=== PATIENT | female | born 1990 | race Caucasian/White ===

== ENCOUNTER 2016-11-07 09:19 | Inpatient (IN) ==
[2016-11-07] MEDS ORDERED: ONDANSETRON 4 MG/2 ML VIAL IV PRN ×2 (09:50→12:47)
[2016-11-07] MEDS ORDERED: diphenhydrAMINE 50 MG/1 ML VIAL IV PRN ×2 (09:53)
[2016-11-07] MEDS ORDERED: hydrOXYzine HCL 25 MG/1 ML VIAL IM PRN (09:53)
[2016-11-07] MEDS ORDERED: ePHEDrine 50 MG/ML AMP IV PRN (09:53)
[2016-11-07] MEDS ORDERED: PROMETHAZINE 25 MG/1 ML VIAL IM ONE (09:53)
[2016-11-07] MEDS ORDERED: LACTATED RINGERS 1,000 ML IV ONE (09:55)
[2016-11-07] MEDS ORDERED: CITRIC ACID/SODIUM CITRATE 30 ML UDCUP PO ONE (09:55)
[2016-11-07] MEDS ORDERED: FAMOTIDINE 20 MG/2 ML VIAL IV ONE (09:55)
[2016-11-07] MEDS ORDERED: LACTATED RINGERS 1,000 ML IV SCH ×2 (10:00)
[2016-11-07] MEDS ORDERED: ceFAZolin 2,000 MG in PREMIX 1 EACH IV ONE (10:02)
[2016-11-07] MEDS ORDERED: OXYTOCIN/LR 20 UNIT/1,000 ML BAG IV ONE ×2 (10:02→12:47)
[2016-11-07 10:21] LABS: Hemoglobin 11.7 GM/DL (12.0-16.0); Red Blood Count 3.97 MC/CUMM (3.8-5.5); White Blood Count 13.2 T/CUMM (4-12)
[2016-11-07 10:22] LABS: Basophils # 0.1 10*3/uL (0.0-0.2); Basophils % 0.5 % (0.0-0.8); Eosinophils % 0.2 % (0.00-10.9); Hematocrit 33.8 VOL% (35.7-47.0); Immature Granulocytes % 0.7 %; Immature Granulocytes Absolute 0.09 #; Lymphocytes # 1.6 10*3/uL (1.4-4.0); Lymphocytes % 11.7 % (21.3-54.2); Mean Corpuscular HGB Conc 34.6 GM/DL (32-36); Mean Corpuscular Hemoglobin 30 PG (27-34); Mean Corpuscular Volume 85.1 FL (87-102); Mean Platelet Volume 10.4 FL (9.6-12.0); Monocytes # 0.9 10*3/uL (0.11-0.8); Monocytes % 6.4 % (1.7-12.7); Neutrophils # 10.6 10*3/uL (1.4-7.4); Neutrophils % 80.5 % (38.7-73.9); Platelet Count 259 T/CUMM (130-400); Red Cell Distribution Width 13.8 % (9.3-17.3)
[2016-11-07 12:39] LABS: Apearance,Urine CLEAR (Clear); Bilirubin,Urine Negative (Negative); Blood, Urine Negative (Negative); Glucose,Urine (UA) Negative (Negative); Ketones,Urine 20 mg/dL (Negative); Nitrite,Urine Negative (Negative); Protein,Urine Negative; RBC,Urine <1 /HPF (0-4); Urine Color Straw (Yellow); Urine Specific Gravity 1.006 (1.001-1.035); Urine Urobilinogen < 2.0 EU/DL (0.2-1.0)
--- NOTE | 2016-11-07 12:46 | OB/GYN History & Physical ---
History of Present Illness Chief complaint: 39 weeks breech History of present illness: Ms. Jewell is a 26 year old female 2 para 1 at 39 weeks estimated gestational age breech presentation admitted for elective Home Medications Medication Instructions Recorded Confirmed Type Vits #90/Iron Fum/FA 1 tablet PO DAILY 10/31/16 11/07/16 History [ Formula Tablet] Allergies Allergy/AdvReac Type Severity Reaction Status Date / Time No Known Allergies Allergy Verified 10/31/16 12:53 12 point system: reviewed and no additional remarkable complaints except as stated Medical,Surgical,& Family Hx - Medical History Reproductive: No history of: Ectopic - Surgical History Reproductive Surgeries: Patient denies;: Section - Family History Family History: Reports;: Family Cancer (MATERNAL GR MOM BREAST,OVARIAN), Family Heart Disease (DAD ET PATERNAL GR DAD) Denies;: Family Anesthesia Reaction, Family Diabetes, Family Hematology, Family Hypertension, Family Psychiatric Problems, Family Stroke, Additional Family History - Social History Smoking Status: Never smoker 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 - Constitutional Vitals: Vital Signs Temp Pulse Resp BP Pulse Ox 11/07/16 09:46 98.4 F 70 20 129/72 98 General appearance: normal weight, no acute distress - Head Head exam: Present: normal inspection, normocephalic, atraumatic - Neck Neck exam: Present: normal inspection - Respiratory Respiratory exam: Present: clear to auscultation bilaterally - Breast Breasts: as per HPI Menstruation: as per HPI - Cardiovascular Cardiovascular exam: Present: regular rate and rhythm - GI/Abdominal GI/Abdominal exam: Present: normal bowel sounds - Extremities Exam Extremities exam: Present: normal inspection, normal capillary refill - Back Exam Back exam: Present: normal inspection - Neurological Exam Neurological exam: Present: alert, oriented X3 - Psychiatric Psychiatric exam: Present: normal affect, normal mood - Skin Skin exam: Present: normal color, warm Assessment and Plan (1) with 39 completed weeks gestation Status: Acute Current Visit: Yes (2) Sulaiman breech presentation Status: Acute Current Visit: Yes Results - Labs CBC & BMP: 11/07/16 10:00
[2016-11-07] MEDS ORDERED: MEASLES/MUMPS/RUBELLA VACCINE 0.5 ML VIAL SUBCUT ONE (12:47)
[2016-11-07] MEDS ORDERED: DIPH/TET/ACEL PERT BOOSTER VACCINE 0.5 ML VIAL IM ONE (12:47)
[2016-11-07] MEDS ORDERED: WITCH HAZEL PADS 100/JAR TOP PRN (12:47)
[2016-11-07] MEDS ORDERED: BISACODYL 10 MG SUPP RECTAL PRN (12:47)
[2016-11-07] MEDS ORDERED: BENZOCAINE 20%/MENTHOL 0.5% SPRAY 56 GM CAN TOP PRN (12:47)
[2016-11-07] MEDS ORDERED: ACETAMINOPHEN 325 MG TABLET PO PRN (12:47)
[2016-11-07] MEDS ORDERED: oxyCODONE/ACETAMINOPHEN 5-325 MG TABLET PO PRN (12:47)
[2016-11-07] MEDS ORDERED: HYDROCORTISONE 2.5% RECTAL CREAM 30 GM TUBE TOP PRN (12:47)
[2016-11-07] MEDS ORDERED: RHO(D) IMMUNE GLOBULIN 300 MCG SYRINGE IM ONE (12:47)
[2016-11-07] MEDS ORDERED: LANOLIN 50% CREAM 0.3 OZ TUBE TOP PRN (12:47)
--- NOTE | 2016-11-07 12:47 | Operative Note ---
Date of procedure: 11/07/16 Pre-op diagnosis: 39 weeks sulaiman breech Post-op diagnosis: same Procedure: This is Dr. Connors dictating operative note: Preoperative diagnosis intrauterine intrauterine at [39] weeks Sulaiman breech presentation Postoperative diagnosis same Procedure primary low transverse section Surgeon Dr. Connors Anesthesia spinal Findings liveborn female infant 6 pounds 12 ounces Apgars 9 and 9 Complications none Estimated blood loss 300 mL Disposition patient to recovery room in [stable] condition. Infant to nursery in [stable] condition Operative description: After the risks benefits and alternatives were explained to the patient in detail and informed consent was obtained, the patient was taken to the operating room where she was placed in the supine position. After achieving appropriate anesthesia the abdomen was prepped and draped in the usual sterile fashion. A Ocmbs catheter was placed without difficulty. After the appropriate time out and after adequate anesthesia was ascertained a Pfannenstiel skin incision was made and carried down through the subcutaneous tissue down to the fascia. The fascia was nicked in the midportion and undermined and incised both laterally and cephalad using sharp dissection with the curved Carver scissors. 2 Vilma clamps were used to elevate the rectus fascia superiorly which was bluntly and sharply dissected away from the rectus muscle below. This was repeated inferiorly. The rectus muscles were then bluntly in the midline the peritoneum identified grasped with 2 curved hemostats and entered sharply using the curved Metzenbaum scissors. A bladder blade was then placed in the pelvis and a bladder flap was created off the lower uterine segment using sharp dissection with the Metzenbaum scissors. The bladder blade was then repositioned. A transverse incision was made across the lower uterine segment down to the amnion. Entry into the amnion revealed [ clear] amniotic fluid. The uterine incision was then extended laterally using bilateral finger fractionation. Upon palpation the presenting part was sulaiman breech which was gently elevated out of the pelvis and delivered onto the abdominal wall using appropriate fundal pressure. The 's nose and oropharynx were bulb and DeLee suctioned and the had spontaneous cry delivery. The cord was doubly clamped and cut and the infant was handed over to the team for care. Cord blood was obtained. The placenta was delivered manually and IV Pitocin antibiotics and Zofran were begun. The uterus was then exteriorized and placed in a wet laparotomy sponge. 2 fingers wrapped around a wet laparotomy sponge were used to remove all residual membranes from the uterine cavity. The uterus was then closed in 2 layers. The first layer of myometrium was closed with #1 Monocryl suture in an inner locking fashion beginning at both angles and overlapping slightly in the midline. The second layer of myometrium was closed with #1 Monocryl suture in a running imbricating stitch beginning at the right angle and continuing the length of the uterine incision. Hemostasis was noted to be excellent. The posterior cul-de-sac was then irrigated and cleansed with a wet laparotomy sponge and the uterus was placed back in the abdominal cavity. Both pericolic gutters were then irrigated and cleansed with a wet lap sponge. The uterine incision was then re-irrigated and again noted to be hemostatic. All counts were noted to be correct. The subcutaneous tissue was then closed using 3-0 Vicryl suture in a running fashion. The subfascial area was made hemostatic using electrocautery and closed with #1 PDS suture in a running fashion beginning at both angles and overlapping slightly in the midline. The subcutaneous tissue was irrigated and made hemostatic using electrocautery and closed with 2-0 Vicryl suture in a running fashion and the skin was closed with wide skin angelique and a sterile pressure bandage was applied to the wound. All sponge needle and instrument counts were correct -3 at the end of the procedure. The patient's urine was [clear] both at the beginning in the end of the procedure. The patient was taken to the recovery room in stable condition Anesthesia: spinal Surgeon / Physician: Gabriel Connors Estimated blood loss: other (300) Specimens: none sent Condition: stable Disposition: floor Results - Labs CBC & BMP: 11/07/16 10:00 Discharge Plan - Discharge Medications No Action Vits #90/Iron Fum/FA [ Formula Tablet] 1 tablet PO DAILY - Follow Up or Referral - Forms/Instructions
--- NOTE | 2016-11-07 12:52 | Discharge Summary ---
Hospital Course - Hospital Course Hospital Course: Postoperative the patient did well. She had quick return of bowel bladder function. She remained afebrile and normotensive throughout her hospitalization. Scans were discharged on postoperative day #2 on a regular diet Diagnosis - Discharge Diagnosis (1) with 39 completed weeks gestation Status: Acute (2) Sulaiman breech presentation Status: Acute Discharge Plan - Discharge Data Disposition: Disch To Home/Self Care Condition at Discharge: Stable Discharge Diet: regular diet Activity: increase activity as tolerated, no lifting, other (Pelvic rest) Hygiene: may shower Weight Bearing at Discharge: full weight bearing Driving: not until seen by doctor Contact your physician if you experience:: fever over 101, Difficulty voiding, Redness or swelling, Nausea/Vomiting, Shortness of breath, Bleeding, pain uncontrolled by pain medications - Discharge Medications New oxyCODONE/ACETAMINOPHEN 5-325 [Percocet 5-325] 1 tablet PO Q6H PRN #20 tablet PRN Reason: Pain Severe (8-10) Continue Vits #90/Iron Fum/FA [ Formula Tablet] 1 tablet PO DAILY - Follow Up or Referral Follow Up: Gabriel Connors MD [Physician] - 1 Week - Forms/Instructions Exam - Constitutional Vitals: Period Temp Pulse Resp BP Sys/Calderón Pulse Ox Last 24 Hr 98.4 F 70 20 129/72 98 Discharge Results Procedures and tests throughout hospitalization: Pending Orders 11/08/16 04:00 Comp Blood Count Auto Diff IN AM Labs on day of discharge: Labs from last 24 hours 11/07/16 11/07/16 11/07/16 12:00 10:00 10:00 WBC 13.2 H RBC 3.97 Hgb 11.7 L Hct 33.8 L MCV 85.1 L MCH 30 MCHC 34.6 RDW 13.8 Plt Count 259 MPV 10.4 Neut % (Auto) 80.5 H Lymph % (Auto) 11.7 L [place] % (Auto) 6.4 Eos % (Auto) 0.2 Baso % (Auto) 0.5 Neut # (Auto) 10.6 H Lymph # (Auto) 1.6 [place] # (Auto) 0.9 H Eos # (Auto) 0.0 Baso # (Auto) 0.1 Immature Gran % 0.7 Nucleated RBC % 0.0 Immature Gran # 0.09 Nucleated RBCs # 0.00 Urine Color Straw Urine Appearance Clear Urine pH 8.0 Ur Specific [place] 1.006 Urine Protein Negative Urine Glucose (UA) Negative Urine Ketones 20 Urine Blood Negative Urine Nitrate Negative Urine Bilirubin Negative Urine Urobilinogen < 2.0 H Urine Leukocytes Negative Urine RBC <1 Ur Culture Indicated? Not indicated Blood Type O POSITIVE Antibody Screen Negative DS: Provider Date of admission: 11/07/16 09:19 Primary care physician: Johan Baker Attending physician on admission: Yolanda hZao Consults: 11/07/16 09:50 Consult to Anesthesiology [CONS] Routine Consulting Provider: Reason for Anesthesiology: Epidural Consult Comment: Epidural for pain managment 11/07/16 12:48 Consult to Basting Machine Operator [CONS] Routine Consult Basting Machine Operator: Breast Feeding Discharging clinician: Yolanda Zhao Expected date of discharge: 11/09/16
[2016-11-07] MEDS ORDERED: fentaNYL 100 MCG/2 ML VIAL ONE (13:00)
[2016-11-07] MEDS ORDERED: MORPHINE 10 MG/10 ML VIAL ONE (13:01)
--- NOTE | 2016-11-07 15:12 | Anesthesia Post-Op ---
Anesthesia Post OP - Post Ansesthetic Evaluation Patient seen in post op: Yes Resp: within normal limits CV: within normal limits Mental: within normal limits Temp: within normal limits [id number]: within normal limits Nausea and Vomiting: within normal limits Pain: within normal limits
[2016-11-07] MEDS: oxyCODONE/ACETAMINOPHEN 5-325 MG TABLET PO PRN (16:09)
[2016-11-07] MEDS ORDERED: ceFAZolin 1,000 MG VIAL IM SCH (21:00)
[2016-11-07] MEDS: DOCUSATE SODIUM 100 MG CAPSULE PO SCH (23:19)
[2016-11-08 05:30] LABS: Basophils # 0.1 10*3/uL (0.0-0.2); Basophils % 0.5 % (0.0-0.8); Eosinophils # 0.1 10*3/uL (0.0-0.87); Eosinophils % 0.7 % (0.00-10.9); Hematocrit 26.6 VOL% (35.7-47.0); Hemoglobin 8.9 GM/DL (12.0-16.0); Immature Granulocytes % 0.6 %; Immature Granulocytes Absolute 0.07 #; Lymphocytes # 1.7 10*3/uL (1.4-4.0); Mean Corpuscular HGB Conc 33.5 GM/DL (32-36); Mean Corpuscular Hemoglobin 29 PG (27-34); Mean Corpuscular Volume 86.6 FL (87-102); Monocytes # 0.9 10*3/uL (0.11-0.8); Monocytes % 7.8 % (1.7-12.7); Neutrophils # 8.4 10*3/uL (1.4-7.4); Neutrophils % 75.4 % (38.7-73.9); Platelet Count 182 T/CUMM (130-400); Red Blood Count 3.07 MC/CUMM (3.8-5.5); Red Cell Distribution Width 13.9 % (9.3-17.3); White Blood Count 11.1 T/CUMM (4-12)
[2016-11-08] MEDS: MULTIVITAMIN (PRENATAL) TABLET PO SCH (08:35)
[2016-11-08] MEDS: oxyCODONE/ACETAMINOPHEN 5-325 MG TABLET PO PRN ×3 (08:35→22:45)
[2016-11-08] MEDS: IBUPROFEN 800 MG TABLET PO PRN ×4 (08:35→22:45)
[2016-11-08] MEDS: DOCUSATE SODIUM 100 MG CAPSULE PO SCH ×2 (08:35→22:04)
--- NOTE | 2016-11-08 09:53 | OB/GYN Progress Note ---
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 She is tolerating her diet. She is alert and oriented -3 Cardiovascular regular rate and rhythm Lungs clear to auscultation Abdomen soft with appropriate tenderness and bowel sounds are present and her incision is dry no bleeding Is good refill HEENT shows pink conjunctiva assessment 1 day of surgery doing well Plan continue present management with expected DC in a.m. Exam MILITARY PERSONNEL SPECIALIST - Constitutional Vitals: Vital Signs Temp Pulse Resp BP Pulse Ox 11/08/16 04:00 97.4 F L 69 18 103/62 99 11/08/16 00:00 97.7 F 79 18 119/59 99 11/07/16 20:40 97.8 F 66 20 135/88 99 11/07/16 19:02 18 11/07/16 19:01 97.2 F L 67 18 142/76 11/07/16 16:00 97.6 F 70 18 124/64 99 Results - Labs CBC & BMP: 11/08/16 05:13
[2016-11-08] MEDS ORDERED: MAGNESIUM HYDROXIDE SUSP 30 ML UDCUP PO PRN (21:37)
[2016-11-09] MEDS: IBUPROFEN 800 MG TABLET PO PRN (08:03)
[2016-11-09] MEDS: oxyCODONE/ACETAMINOPHEN 5-325 MG TABLET PO PRN (08:06)
[2016-11-09] MEDS: MULTIVITAMIN (PRENATAL) TABLET PO SCH (09:39)
[2016-11-09] MEDS: DOCUSATE SODIUM 100 MG CAPSULE PO SCH (09:39)
[2016-11-09 10:37] VITALS: BP 119/70
== END 2016-11-09 11:20 | disposition home or self-care (01) | DRG 766 ==
LOC: N.LD 09:19 → N.OB 20:40
PROVIDERS: ADMIT Specialist; ATTEND Specialist
PROC: LDCSECT (ICD-10-PCS; 2016-11-07 12:00)

== ENCOUNTER 2020-07-18 06:03 | Inpatient (IN) ==
[2020-07-18] MEDS ORDERED: CITRIC ACID/SODIUM CITRATE 30 ML UDCUP PO ONE (06:14)
[2020-07-18] MEDS ORDERED: ceFAZolin 2,000 MG in PREMIX 1 EACH IV ONE (06:14)
[2020-07-18] MEDS ORDERED: FAMOTIDINE 20 MG/2 ML VIAL IV ONE (06:14)
[2020-07-18] MEDS ORDERED: OXYTOCIN/LR 20 UNIT/1,000 ML BAG IV ONE ×2 (06:27→11:57)
[2020-07-18 06:33] LABS: Basophils # 0.1 10*3/uL (0.0-0.2); Basophils % 0.4 % (0.0-0.8); Eosinophils # 0.1 10*3/uL (0.0-0.87); Eosinophils % 1.1 % (0.00-10.9); Hematocrit 32.8 VOL% (35.7-47.0); Hemoglobin 10.5 GM/DL (12.0-16.0); Immature Granulocytes % 1.2 %; Immature Granulocytes Absolute 0.15 #; Lymphocytes # 2.3 10*3/uL (1.4-4.0); Lymphocytes % 18.4 % (21.3-54.2); Mean Corpuscular Volume 85.6 FL (87-102); Mean Platelet Volume 9.5 FL (9.6-12.0); Monocytes % 9.8 % (1.7-12.7); Neutrophils % 69.1 % (38.7-73.9); Platelet Count 265 T/CUMM (130-400); Red Blood Count 3.83 MC/CUMM (3.8-5.5); Red Cell Distribution Width 14.7 % (9.3-17.3); White Blood Count 12.3 T/CUMM (4-12)
[2020-07-18] MEDS: LACTATED RINGERS 1,000 ML IV SCH ×2 (06:41→10:29)
[2020-07-18 06:58] LABS: Albumin 2.5 G/DL (3.4-5.0); Calcium 8.9 MG/DL (8.5-10.1); Potassium 3.9 MMOL/L (3.5-5.1); Total Protein 7.3 G/DL (6.4-8.3)
[2020-07-18] MEDS ORDERED: BUPIVACAINE SPINAL 0.75% 2 ML AMP SPINAL ONE (07:11)
[2020-07-18] MEDS ORDERED: MORPHINE 10 MG/10 ML VIAL ONE (07:12)
[2020-07-18] MEDS ORDERED: fentaNYL 100 MCG/2 ML VIAL ONE (07:12)
[2020-07-18] MEDS ORDERED: ONDANSETRON 4 MG/2 ML VIAL ONE (07:12)
[2020-07-18] MEDS ORDERED: BUPIVACAINE MPF 0.25% 30 ML VIAL ONE (07:14)
[2020-07-18] MEDS ORDERED: miSOPROStoL 200 MCG TABLET ONE (10:51)
[2020-07-18] MEDS ORDERED: METHYLERGONOVINE 0.2 MG/1 ML AMP ONE (10:51)
[2020-07-18] MEDS ORDERED: TRANEXAMIC ACID 1,000 MG/10 ML VIAL ONE (10:51)
[2020-07-18] MEDS ORDERED: CARBOPROST TROMETHAMINE 250 MCG/ML AMP IM ONE (10:52)
[2020-07-18] MEDS ORDERED: PHENYLEPHRINE 1 MG/10 ML SYRINGE IV ONE (11:13)
[2020-07-18] MEDS ORDERED: ePHEDrine 50 MG/ML VIAL ONE (11:17)
[2020-07-18] MEDS ORDERED: ACETAMINOPHEN 1,000 MG/100 ML VIAL IV ONE (11:38)
[2020-07-18 11:42] LABS: Cord Venous Blood PCO2 46.6 MMHG; Cord Venous Blood PO2 29.7
[2020-07-18 11:54] LABS: Bilirubin,Urine Negative (Negative); Blood, Urine Negative (Negative); Glucose,Urine (UA) Negative (Negative); Ketones,Urine 20 mg/dL (Negative); Mucus,Urine Occasional /LPF (Occasional); Nitrite,Urine Negative (Negative); Protein,Urine Negative; RBC,Urine 1 /HPF (0-4); Squamous Epithelial Cell,Urine Occasional /HPF (0-10); Urine Appearance CLEAR (Clear); Urine Color Yellow (Yellow); Urine Specific Gravity 1.011 (1.001-1.035); Urine Urobilinogen < 2.0 EU/DL (0.2-1.0)
[2020-07-18] MEDS ORDERED: MEASLES/MUMPS/RUBELLA VACCINE 0.5 ML VIAL SUBCUT ONE (11:57)
[2020-07-18] MEDS ORDERED: ONDANSETRON 4 MG/2 ML VIAL IV PRN (11:57)
[2020-07-18] MEDS ORDERED: WITCH HAZEL PADS 100/JAR TOP PRN (11:57)
[2020-07-18] MEDS ORDERED: oxyCODONE/ACETAMINOPHEN 5-325 MG TABLET PO PRN (11:57)
[2020-07-18] MEDS ORDERED: DIPH/TET/ACEL PERT BOOSTER VACCINE 0.5 ML VIAL IM ONE (11:57)
[2020-07-18] MEDS ORDERED: LANOLIN 50% CREAM 0.3 OZ TUBE TOP PRN (11:57)
[2020-07-18] MEDS ORDERED: HYDROCORTISONE 2.5% RECTAL CREAM 30 GM TUBE TOP PRN (11:57)
[2020-07-18] MEDS ORDERED: BENZOCAINE 20%/MENTHOL 0.5% SPRAY 56 GM CAN TOP PRN (11:57)
[2020-07-18] MEDS ORDERED: ACETAMINOPHEN 325 MG TABLET PO PRN (11:57)
[2020-07-18] MEDS ORDERED: BISACODYL 10 MG SUPP RECTAL PRN (11:57)
[2020-07-18] MEDS ORDERED: RHO(D) IMMUNE GLOBULIN 300 MCG SYRINGE IM ONE (11:57)
[2020-07-18] MEDS ORDERED: diphenhydrAMINE 50 MG/1 ML VIAL IV PRN (16:15)
[2020-07-18] MEDS: KETOROLAC 30 MG/1 ML VIAL IV SCH ×2 (17:49→20:25)
[2020-07-18] MEDS: ACETAMINOPHEN 500 MG TABLET PO SCH (17:49)
[2020-07-18] MEDS: DOCUSATE SODIUM 100 MG CAPSULE PO SCH (21:09)
[2020-07-19] MEDS: ACETAMINOPHEN 500 MG TABLET PO SCH ×2 (02:35→06:09)
[2020-07-19] MEDS: oxyCODONE/ACETAMINOPHEN 5-325 MG TABLET PO PRN ×3 (02:39→19:40)
[2020-07-19] MEDS: KETOROLAC 30 MG/1 ML VIAL IV SCH (05:40)
[2020-07-19 05:49] LABS: Basophils % 0.4 % (0.0-0.8); Eosinophils # 0.2 10*3/uL (0.0-0.87); Eosinophils % 1.8 % (0.00-10.9); Hematocrit 25.8 VOL% (35.7-47.0); Hemoglobin 8.1 GM/DL (12.0-16.0); Immature Granulocytes % 0.9 %; Lymphocytes # 2.1 10*3/uL (1.4-4.0); Lymphocytes % 19.1 % (21.3-54.2); Mean Corpuscular HGB Conc 31.4 GM/DL (32-36); Mean Corpuscular Volume 86.6 FL (87-102); Mean Platelet Volume 9.7 FL (9.6-12.0); Monocytes % 9.4 % (1.7-12.7); Neutrophils % 68.4 % (38.7-73.9); Platelet Count 201 T/CUMM (130-400); Red Blood Count 2.98 MC/CUMM (3.8-5.5); Red Cell Distribution Width 14.8 % (9.3-17.3); White Blood Count 11.2 T/CUMM (4-12)
[2020-07-19] MEDS: IRON (CARBONYL)/VIT C/B12/FA TABLET PO SCH (09:41)
[2020-07-19] MEDS: DOCUSATE SODIUM 100 MG CAPSULE PO SCH ×2 (09:42→19:40)
[2020-07-19] MEDS: MAGNESIUM HYDROXIDE SUSP 30 ML UDCUP PO PRN ×2 (09:42→19:40)
[2020-07-19] MEDS: IBUPROFEN 800 MG TABLET PO PRN ×2 (10:44→19:40)
[2020-07-20] MEDS: oxyCODONE/ACETAMINOPHEN 5-325 MG TABLET PO PRN ×2 (01:04→08:36)
[2020-07-20 07:13] VITALS: BP 131/65
[2020-07-20] MEDS: IRON (CARBONYL)/VIT C/B12/FA TABLET PO SCH (08:31)
[2020-07-20] MEDS: DOCUSATE SODIUM 100 MG CAPSULE PO SCH (08:31)
== END 2020-07-20 11:15 | disposition home or self-care (01) | DRG 788 ==
LOC: N.LDOUT 06:03 → N.LD 06:06 → N.OB 15:19
PROVIDERS: ADMIT Specialist; ATTEND Specialist
PROC: LDCSECT (ICD-10-PCS; 2020-07-18 08:00)